=== PATIENT | female | born 1945 | race Caucasian/White ===

== ENCOUNTER 2023-08-13 09:04 | Inpatient (IN) | payer MEDICARE, OTHER ==
[2023-08-13] MEDS ORDERED: Tenecteplase 50 MG ONE (09:25)
[2023-08-13 09:44] LABS: #Basophils 0.1 thou/uL (0.0-0.2); #Eosinphils 0.2 thou/uL (0.0-0.7); #Monocytes 0.5 thou/uL (0.11-0.59); #Neutrophils 2.9 thou/uL (1.40-6.50); %Basophils 1.6 % (0.0-1.0); %Eosinophils 4.8 % (0.0-10.0); %Lymphocytes 23.9 % (21.0-51.0); %Monocytes 10.9 % (0.0-10.0); %Neutrophils 58.6 % (42.0-75.0); Hemoglobin 13.2 g/dL (12.0-16.0); Mean Corpuscular HGB CONC 33.8 g/dL (32.0-36.0); Mean Corpuscular Hemoglobin 31.4 pg (27.0-31.0); Mean Corpuscular Volume 92.6 fl (78.0-98.0); Mean Platelet Volume 9.8 fL (7.4-10.4); Platelet Count 202 10x3/uL (130-400); RBC Distribution Width 13.2 % (11.5-14.5); Red Blood Cell (RBC) Count 4.21 mill/uL (4.20-5.40)
[2023-08-13 10:01] LABS: ALT (SGPT) 28 U/L (8-55); AST (SGOT) 26 U/L (5-34); Albumin 3.3 g/dL (3.4-4.8); Alkaline Phosphatase 85 U/L (40-110); Anion Gap 14 mmol/L (10-20); BUN (Urea Nitrogen) 21 mg/dL (9.8-20.1); Bilirubin, Total 0.6 mg/dL (0.2-1.2); Calc. Creatinine Clearance 0 mL/min (70-130); Calcium 8.7 mg/dL (7.8-10.44); Carbon Dioxide 23 mmol/L (23-31); Chloride 103 mmol/L (98-107); Estimated GFR 42; Globulin 2.6 g/dL (2.4-3.5); Glucose 164 mg/dL (83-110); Protein, Total 5.9 g/dL (5.8-8.1); Sodium 136 mmol/L (136-145)
[2023-08-13 10:05] LABS: Troponin I Less than 0.010 ng/mL (< 0.028)
[2023-08-13 10:12] LABS: INR-International Normal Ratio 1.1; PTT 25.7 sec (22.9-36.1); Prothrombin Time 14.3 sec (12.0-14.7)
[2023-08-13] MEDS ORDERED: Communication Order-Pharmacy FS ONE (10:33)
[2023-08-13] MEDS ORDERED: Labetalol HCl 100 MG/20 ML VIAL SLOW IVP PRN (10:33)
[2023-08-13] MEDS ORDERED: niCARdipine 25 MG in Sodium Chloride 0.9% 250 ML 250 ML IVPB PRN (10:33)
[2023-08-13] MEDS ORDERED: Acetaminophen 325 MG TAB PO PRN (10:33)
[2023-08-13] MEDS ORDERED: Ondansetron PF 4 MG/2 ML Vial IVP PRN (10:45)
[2023-08-13] MEDS ORDERED: Acetaminophen 650 MG Suppository PR PRN (10:45)
[2023-08-13] MEDS ORDERED: Sodium Chloride 0.9% 1,000 ML IV SCH (10:45)
[2023-08-13] MEDS ORDERED: Ondansetron ODT 4 MG TAB PO PRN (10:45)
[2023-08-13] MEDS ORDERED: hydrALAZINE 20 MG/ML VIAL ONE (10:47)
[2023-08-13 11:09] LABS: Bacteria/HPF None Seen HPF (None Seen); Bilirubin Negative (Negative); Blood, Urine Negative (Negative); CAUTI Indications for Culture Alt mental st,lethar; Clarity Clear (Clear); Glucose, Urine (Dipstick) Greater than 1000 mg/dL (Negative); Ketone, Urine Negative (Negative); Leukocyte Negative Leu/uL (Negative); Nitrite Negative (Negative); Protein, Urine (Dipstick) Negative (Neg-Trace); RBC/HPF 0-3 HPF (0-3); Squamous Epithelial None Seen HPF (0-3); Urobilinogen Normal mg/dL (Less than 2); WBC/HPF 0-3 HPF (0-3)
[2023-08-13 11:19] LABS: Urine Culture Reflex No No
[2023-08-13 12:24] VITALS: BMI 22.6
[2023-08-13] MEDS: hydrALAZINE 20 MG/ML VIAL SLOW IVP PRN ×2 (12:39→23:36)
[2023-08-13] MEDS ORDERED: Dextrose 5% in Water 1,000 ML IV PRN (13:10)
[2023-08-13] MEDS ORDERED: Insulin Regular 300 UNITS/3 ML VIAL SC PRN (13:10)
[2023-08-13] MEDS ORDERED: Glucagon 1 MG/ML KIT IM PRN (13:10)
[2023-08-13] MEDS ORDERED: Dextrose 50% Abboject 50 ML SYRINGE SLOW IVP PRN (13:10)
[2023-08-13] MEDS ORDERED: Iopamidol-370 76% 500 ML MDV (1 ML CHARGE) ONE ×2 (15:22)
[2023-08-13] MEDS ORDERED: Amiodarone 150 MG, Admixture Fee 1 EACH in Dextrose 5% in Water 100 ML IVPB SCH (19:00)
[2023-08-13] MEDS: Amiodarone 450 MG, Admixture Fee 1 EACH in Dextrose 5% in Water 250 ML IVPB SCH (20:34)
[2023-08-13] MEDS: Atorvastatin Calcium 40 MG TAB PO SCH (20:51)
[2023-08-13] MEDS: Docusate 100 MG CAP PO SCH (20:51)
[2023-08-13] MEDS: Famotidine 20 MG TAB PO SCH (20:51)
[2023-08-13] MEDS ORDERED: Flecainide 50 MG TAB PO SCH (21:00)
[2023-08-13] MEDS: Famotidine/PF 20 mg/2ml Vial SLOW IVP SCH (21:00)
[2023-08-14] MEDS: hydrALAZINE 20 MG/ML VIAL SLOW IVP PRN ×3 (04:05→22:12)
[2023-08-14] MEDS: Levothyroxine Sodium 75 MCG TAB PO SCH (05:20)
[2023-08-14] MEDS: Amiodarone 450 MG, Admixture Fee 1 EACH in Dextrose 5% in Water 250 ML IVPB SCH (06:01)
[2023-08-14] MEDS: Famotidine 20 MG TAB PO SCH ×3 (09:23→20:28)
[2023-08-14] MEDS: Docusate 100 MG CAP PO SCH ×3 (09:23→20:28)
[2023-08-14] MEDS: Famotidine/PF 20 mg/2ml Vial SLOW IVP SCH (09:23)
[2023-08-14] MEDS ORDERED: Aspirin 325 mg Enteric Coated Tablet PO SCH (09:30)
[2023-08-14 09:57] LABS: #Basophils 0.1 thou/uL (0.0-0.2); #Monocytes 0.8 thou/uL (0.11-0.59); #Neutrophils 9.6 thou/uL (1.40-6.50); %Basophils 0.8 % (0.0-1.0); %Eosinophils 0.3 % (0.0-10.0); %Lymphocytes 14.4 % (21.0-51.0); %Monocytes 6.5 % (0.0-10.0); %Neutrophils 77.7 % (42.0-75.0); Mean Corpuscular HGB CONC 34.1 g/dL (32.0-36.0); Mean Corpuscular Hemoglobin 31.3 pg (27.0-31.0); Mean Corpuscular Volume 91.9 fl (78.0-98.0); Mean Platelet Volume 10.5 fL (7.4-10.4); Platelet Count 214 10x3/uL (130-400); RBC Distribution Width 13.5 % (11.5-14.5); White Blood Cell (WBC) Count 12.3 10x3/uL (4.8-10.8)
[2023-08-14 10:06] LABS: Hemoglobin A1c 6.4 % (4.0-6.0)
[2023-08-14 10:12] LABS: Hemoglobin 16.6 g/dL (12.0-16.0)
[2023-08-14 10:14] LABS: Hematocrit 48.7 % (36.0-47.0)
[2023-08-14 10:18] LABS: ALT (SGPT) 26 U/L (8-55); AST (SGOT) 33 U/L (5-34); Albumin 3.8 g/dL (3.4-4.8); Alkaline Phosphatase 85 U/L (40-110); Anion Gap 18 mmol/L (10-20); BUN (Urea Nitrogen) 17 mg/dL (9.8-20.1); Calc. Creatinine Clearance 46 mL/min (70-130); Calcium 9.4 mg/dL (7.8-10.44); Carbon Dioxide 18 mmol/L (23-31); Cardiac Risk 3.3 (Less than 4.5); Chloride 105 mmol/L (98-107); Cholesterol 167 mg/dl (< 200 Desired); Estimated GFR 49; Globulin 3.3 g/dL (2.4-3.5); Glucose 131 mg/dL (83-110); HDL Cholesterol 50 mg/dL (>60 Neg Risk); LDL Cholesterol, Calculated 105 mg/dL; Potassium 3.8 mmol/L (3.5-5.1); Protein, Total 7.1 g/dL (5.8-8.1); Sodium 137 mmol/L (136-145); Triglycerides 61 mg/dL (Less than 150)
[2023-08-14] MEDS: Amiodarone 200 MG TAB PO SCH (20:19)
[2023-08-14] MEDS: Atorvastatin Calcium 40 MG TAB PO SCH (20:20)
[2023-08-15] MEDS: Labetalol HCl 100 MG/20 ML VIAL SLOW IVP PRN ×2 (01:14→20:32)
[2023-08-15] MEDS ORDERED: hydrALAZINE 20 MG/ML VIAL SLOW IVP PRN (02:34)
[2023-08-15] MEDS ORDERED: Lorazepam 2 MG/ML VIAL SLOW IVP SCH ×2 (03:30→06:15)
[2023-08-15 03:49] LABS: Hematocrit 43.1 % (36.0-47.0); Mean Corpuscular HGB CONC 34.8 g/dL (32.0-36.0); Mean Corpuscular Hemoglobin 31.1 pg (27.0-31.0); Mean Corpuscular Volume 89.4 fl (78.0-98.0); Mean Platelet Volume 9.5 fL (7.4-10.4); Platelet Count 232 10x3/uL (130-400); RBC Distribution Width 13.2 % (11.5-14.5); Red Blood Cell (RBC) Count 4.82 mill/uL (4.20-5.40); White Blood Cell (WBC) Count 14.5 10x3/uL (4.8-10.8)
[2023-08-15] MEDS: Levothyroxine Sodium 75 MCG TAB PO SCH (05:35)
[2023-08-15] MEDS ORDERED: Amlodipine 5 MG TAB PO SCH (09:00)
[2023-08-15] MEDS: Famotidine 20 MG TAB PO SCH ×2 (09:10→20:18)
[2023-08-15] MEDS: Amiodarone 200 MG TAB PO SCH ×2 (09:11→20:18)
[2023-08-15] MEDS: Docusate 100 MG CAP PO SCH ×2 (09:11→20:18)
[2023-08-15] MEDS: Insulin Regular 300 UNITS/3 ML VIAL SC PRN ×2 (11:18→16:58)
[2023-08-15] MEDS: Atorvastatin Calcium 40 MG TAB PO SCH (20:18)
[2023-08-16 04:56] LABS: Hematocrit 41.9 % (36.0-47.0); Hemoglobin 14.6 g/dL (12.0-16.0); Mean Corpuscular HGB CONC 34.8 g/dL (32.0-36.0); Mean Corpuscular Hemoglobin 31.6 pg (27.0-31.0); Mean Corpuscular Volume 90.7 fl (78.0-98.0); Mean Platelet Volume 9.8 fL (7.4-10.4); Platelet Count 214 10x3/uL (130-400); RBC Distribution Width 13.5 % (11.5-14.5); Red Blood Cell (RBC) Count 4.62 mill/uL (4.20-5.40); White Blood Cell (WBC) Count 9.5 10x3/uL (4.8-10.8)
[2023-08-16 05:22] LABS: Anion Gap 14 mmol/L (10-20); BUN (Urea Nitrogen) 25 mg/dL (9.8-20.1); Calc. Creatinine Clearance 47 mL/min (70-130); Calcium 9.1 mg/dL (7.8-10.44); Carbon Dioxide 21 mmol/L (23-31); Chloride 106 mmol/L (98-107); Estimated GFR 50; Glucose 146 mg/dL (83-110); Potassium 3.8 mmol/L (3.5-5.1); Sodium 137 mmol/L (136-145)
[2023-08-16] MEDS: Levothyroxine Sodium 75 MCG TAB PO SCH (05:54)
[2023-08-16] MEDS ORDERED: Amlodipine 10 MG TAB PO SCH (09:00)
[2023-08-16] MEDS ORDERED: Aspirin 81 mg Enteric Coated Tablet PO SCH (09:00)
[2023-08-16] MEDS ORDERED: FLU VACC QS2023(65UP)/MF59C/PF 60 MCG/0.5 ML SYRINGE IM ONE (09:00)
[2023-08-16] MEDS: Docusate 100 MG CAP PO SCH (09:30)
[2023-08-16] MEDS: Famotidine 20 MG TAB PO SCH (09:30)
[2023-08-16] MEDS: Amiodarone 200 MG TAB PO SCH (09:31)
[2023-08-16 09:32] VITALS: BP 156/62
[2023-08-16 12:27] VITALS: TEMP 98.6
== END 2023-08-16 13:30 | DRG 62 ==
LOC: ERS 09:04 → CCU 10:08
PROVIDERS: ADMIT Internal Medicine; ATTEND Internal Medicine
DX: I63.512 Cerebral infarction due to unspecified occlusion or stenosis of left middle cerebral artery (principal); I47.10 Supraventricular tachycardia, unspecified; E11.22 Type 2 diabetes mellitus with diabetic chronic kidney disease; R47.01 Aphasia; N18.9 Chronic kidney disease, unspecified; I25.10 Atherosclerotic heart disease of native coronary artery without angina pectoris; I12.9 Hypertensive chronic kidney disease with stage 1 through stage 4 chronic kidney disease, or unspecified chronic kidney disease; E78.5 Hyperlipidemia, unspecified; G89.4 Chronic pain syndrome; E03.9 Hypothyroidism, unspecified; I48.0 Paroxysmal atrial fibrillation; I45.10 Unspecified right bundle-branch block; I44.0 Atrioventricular block, first degree; R29.709 NIHSS score 9; E11.40 Type 2 diabetes mellitus with diabetic neuropathy, unspecified; K21.9 Gastro-esophageal reflux disease without esophagitis; Z98.49 Cataract extraction status, unspecified eye; Z98.51 Tubal ligation status; Z82.49 Family history of ischemic heart disease and other diseases of the circulatory system; Z79.899 Other long term (current) drug therapy; Z98.890 Other specified postprocedural states; Z88.8 Allergy status to other drugs, medicaments and biological substances
CPT/HCPCS: 0042T; 36415; 36416; 51701; 70450; 70496; 70498; 70551; 71045; 74230; 80048; 80053; 80061; 81001; 83036; 83735; 84484; 85025; 85027; 85610; 85730; 93005; 93010; 93306; 94760; 96374; 96375; 99292; J0282; J0360; J1815; J2060; J3101; J7050; J7070; Q9967; S0028